=== PATIENT | female | born 1965 | race African-American/Black ===

== ENCOUNTER 2021-08-23 02:19 | Emergency (ER) | payer SELFPAY ==
--- NOTE | ~2021-08-23 | XR_ITS ---
EXAMINATION: XR ankle LT min 3V DATE: 08/23/2021 03:10 INDICATION: Left ankle pain. TECHNIQUE: 3 views of left ankle were obtained. COMPARISON: None. FINDINGS: Bone alignment is normal. No fracture. Joint spaces are well maintained. There are enthesop hytes at posterior and plantar aspects of calcaneal tuberosity. IMPRESSION: 1. No fracture. Reviewed, dictated and finalized at location A. IMPRESSION: 1. No fracture.
[2021-08-23 02:21] VITALS: BP 152/63; PULSE 69; RESP 16; TEMP 37; O2SAT 100
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
== END 2021-08-23 03:57 | disposition home or self-care (01) ==
PROVIDERS: Emergency Provider Emergency Medicine
DX: M72.2 Plantar fascial fibromatosis (principal)
CPT/HCPCS: 73610; 99283

== ENCOUNTER 2021-10-08 02:04 | Emergency (ER) | payer SELFPAY ==
--- NOTE | ~2021-10-08 | CT_ITS ---
EXAMINATION: CT brain wo con DATE: 10/08/2021 02:35 INDICATION: Syncope post fall TECHNIQUE: Computed tomography (CT) of the head was performed without intravenous contrast. Sagittal and coronal reconstructions were performed. The mA was adjusted according to patient size. Iterative reconstruction technique was employed. The dose-length product was 605.33 mGy-cm. COMPARISON: None FINDINGS: No fracture. No acute intracranial hemorrhage, acute infarction or abnormal extra axial fluid collect ion. Ventricles are normal and symmetric. No mass/mass effect. The orbits, paranasal sinuses and mast oid air cells are normal. IMPRESSION: 1. No fracture or acute intracranial process. Reviewed, dictated and finalized at location A.
--- NOTE | ~2021-10-08 | XR_ITS ---
EXAMINATION: XR chest 2V DATE: 10/08/2021 02:38 INDICATION: Syncope TECHNIQUE: PA and lateral views of the chest were obtained. COMPARISON: None FINDINGS: The lungs are clear with no focal airspace opacities, pulmonary edema, pleural effusion or pneumothor ax. The cardiomediastinal silhouette is normal. Visualized bones and soft tissues are unremarkable. IMPRESSION: 1. Normal chest radiograph. Reviewed, dictated and finalized at location A. IMPRESSION: 1. Normal chest radiograph.
--- NOTE | ~2021-10-08 | XR_ITS ---
EXAMINATION: XR elbow RT min 3V DATE: 10/08/2021 03:56 INDICATION: Right elbow pain post fall TECHNIQUE: Anteroposterior, two oblique and lateral views of the right elbow were obtained. COMPARISON: None. FINDINGS: Alignment is normal. No fracture or joint effusion. Mild osteoarthritis at the right elbow. Soft tiss ues are unremarkable. IMPRESSION: 1. Mild osteoarthritis at the right elbow. No acute osseous abnormality. Reviewed, dictated and finalized at location A.
[2021-10-08 02:04] VITALS: BP 163/83; PULSE 62; RESP 16; TEMP 36.6; O2SAT 100
--- NOTE | 2021-10-08 02:09 | ECG_ITS ---
Measurements Intervals [place] Rate: 60 P: 51 NE: 208 QRS: 3 QRSD: 108 T: 7 QT: 425 QTc: 425 Interpretive Statements SINUS RHYTHM WITH SINUS ARRHYTHMIA BORDERLINE AV CONDUCTION DELAY VOLTAGE CRITERIA FOR LVH BORDERLINE ECG Electronically Signed On 10-08-2021 7:04:14 CDT by Tacho Sim D.O.
[2021-10-08 02:31] LABS: Basophils Absolute Auto 0.1 K/mm3 (0.0-0.1); Basophils Percent Auto 0.9 % (0.2-1.2); Eosinophils Absolute Auto 0.2 K/mm3 (0-0.3); Eosinophils Percent Auto 2.5 % (0-4.4); Hematocrit 39.1 % (37.0-47.0); Hemoglobin 12.2 g/dL (12.0-15.0); Immature Granulocyte Absolute 0.03 K/mm3 (0.00-0.031); Immature Granulocyte Percent A 0.4 % (0-0.5); Lymphocytes Absolute Auto 2.89 K/mm3 (0.9-3.2); Lymphocytes Percent Auto 38.5 % (18.3-44.2); Mean Corpuscular HGB Conc 31.2 g/dl (32-36); Mean Corpuscular Hemoglobin 28.5 pg (26-34); Mean Corpuscular Volume 91.4 fl (80-100); Mean Platelet Volume 10.5 fl (7.4-10.4); Monocytes Absolute Auto 0.7 K/mm3 (0.1-0.6); Monocytes Percent Auto 8.9 % (2.6-8.5); Neutrophils Absolute Auto 3.7 K/mm3 (1.3-6.7); Neutrophils Percent Auto 48.8 % (45.5-73.1); Platelet Count Result 335 k/mm3 (150-375); Red Blood Count 4.28 M/mm3 (4.2-5.4); Red Cell Distribution Width 13.9 % (11.5-14.5); White Blood Count 7.5 K/mm3 (4.5-10.0)
[2021-10-08 02:45] LABS: Alanine Aminotransferase 14 U/L (6-35); Albumin Level 4.4 g/dL (3.5-5.1); Alkaline Phosphatase 108 U/L (38-126); Anion Gap 8 mmol/L (8-16); Aspartate Amino Transferase 25 U/L (14-36); Bilirubin,Total 0.3 mg/dL (0.2-1.3); Blood Urea Nitrogen 13 mg/dL (7-17); Calcium 8.8 mg/dL (8.4-10.2); Carbon Dioxide 23 mmol/L (22-30); Chloride 107 mmol/L (98-107); Estimated CRCL calculation 72 ml/min; Estimated Glomerular Filt Rate > 60; Glucose 109 mg/dL (65-110); Potassium 4.2 mmol/L (3.4-5.0); Sodium 138 mmol/L (137-145)
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
[2021-10-08 06:00] VITALS: BP 115/75; PULSE 89; RESP 18; O2SAT 98
== END 2021-10-08 06:01 | disposition home or self-care (01) ==
PROVIDERS: Emergency Provider Emergency Medicine
DX: R55 Syncope and collapse (principal); S50.01XA Contusion of right elbow, initial encounter; R94.31 Abnormal electrocardiogram [ECG] [EKG]; M19.021 Primary osteoarthritis, right elbow; W24.0XXA Contact with lifting devices, not elsewhere classified, initial encounter
CPT/HCPCS: 36415; 70450; 71046; 73080; 80053; 85025; 93005; 99284

== ENCOUNTER 2025-02-09 02:52 | Emergency (ER) | payer OTHER, SELFPAY ==
--- OUTSIDE RECORDS SUMMARY | 2020-03-26 12:54 | XMS_ITS | Continuity of Care Document ---
Author Organization [facility] Address [address] [place] [address] Phone Care Team Providers Care Director Career Name Role Phone Galo Vuong MD Unavailable Unavailable Procedures Procedure Date OFFICE CONSULT, 15 MIN, 3 KE Y COMPS: PROB FOCUS HX; PROB FOCUS EXAM; STRTFWD OFFICE CONSULT, 15 MIN, 3 KE Y COMPS: PROB FOCUS HX; PROB FOCUS EXAM; STRTFWD Results Test Name Date and Time Measure Units Reference Range Abnormal Flag Status Comments Panel Description: SARS-CoV- 2 RNA (COVID-19), Qualitative NAAT Final SARS CoV 2 RNA 2019 11:16:0 8 NOT DETECTED NOT DETECTED Final A Not Detected (negative) test result for this testmeans that SARS- CoV-2 RNA was not present in the specimenabove the limit of detection. A negative result does notrule out the possibility of COVID-19 and should not beused as the sole basis for treatment or patient management decisions. If COVID-19 is still suspected, based on exposure history together with other clinical findings,re-testing should be considered in [facility]. Laboratory test results shouldalways be considered in the context of clinical observations and epidemiological data in making a finaldiagnosis and patient management decisions. Please review the Fact Sheets and FDA authorizedlabeling available for health care providers andpatients using the following websites:https://www .[facility].co m/home/Covid-19/HCP/ [facility]/fact-sheet. htmlhttps://www.[facility].com/deep e/Covid-19/Patients/ [facility]/fact-sheet. html This test has been authorized by the FDA under an Emergency Use Authorization (EUA) for use by robert mccormick. Due to the current public health emergency, [facility] is receiving a high volume of samples froma wide variety of swabs and media for COVID-19 testing.In order to serve patients during this public healthcrisis, samples from appropriate clinical sources are being tested. Negative test results derived fromspecimens received in non-commercially manufacturedviral collection and transport media, or in media andsample collection kits not yet authorized by FDA forCOVID-19 testing should be cautiously evaluated and thepatient potentially subjected to extra precautions suchas additional clinical monitoring, including collectionof an additional specimen. Methodology: Nucleic Acid Amplification Test (NAAT)includes RT-PCR or TMA Additional information about COVID-19 can be foundat the [facility] website:www.[employer]/Covid19 . Advance Directives Directive Yes / No Effective Date File Name No Information Encounters Encounter Description Practice Location Reason(s) For Visit Diagnoses Date Provider Providers [facility] on [facility] [address], [place], [place], [address], tel:[phone] [facility] No Information 0 Vuong Galo. [address], [place], [place], [address], . tel:[phone] OFFICE CONSULT, 15 MIN, 3 ACEVEDO COMPS: PROB FOCUS HX; PROB FOCUS EXAM; [facility] , [address], [place], [place], [address], tel:[phone] [facility] [place] ECONOMIC PROBLEM 200 6 No Information OFFICE CONSULT, 15 MIN, 3 ACEVEDO COMPS: PROB FOCUS HX; PROB FOCUS EXAM; [facility] , [address], [place], [place], [address], tel:[phone] Carla Oneill [facility] ECONOMIC PROBLEM 200 6 No Information Family History Family Member Type Diagnosis Age At Onset No Information Payers Payer name Insurance type Covered alliance party ID Authoriza tion(s) No Information Social History Type Description Quantity Date Captured Comments Sex Female Smoking Status No Information Chief Complaint And Reason For Visit No Information Reason For Referral Reason For Referral No Information History Of Present Illness Encounter Date Complaint History Of Prese nt Illness No Information Functional Status Date Functional Assessmen t No Information Instructions Date Instruction Additional Infor mation No Information Assessments Type Assessment Date No Information Patient Care Teams Name Effective Dates (start - stop) Status Members No Information
--- OUTSIDE RECORDS SUMMARY | 2025-02-09 02:55 | XMS_ITS | Encounter Summary ---
Author Organization [facility] Healthcare Address [address] [place] [address] Care Team Providers Care Roofer Gypsum Name Role Phone Isela Elena MD Primary Care Provider Encounter Details Date Type Department Care Team (Late st Contact Info) Description 02/06/2025 Results Follow-Up [facility] at [address] [address] [address] [place] [address] Throat culture Throat Social History Tobacco Use Types Packs/Day Years Used Date Smoking Tobacco: Former Cigarettes 2 5 7 1991 Smokeless Tobacco: Never Alcohol Use Standard Drinks/Week Comments Not Currently 0 (1 standard drink = 0.6 oz pur e alcohol) Humiliation, Afraid, Rape, and Kick questionnair e Answer Date Recorded Within the last year, have y ou been afraid of your partner or ex-partner? No 11/18/2021 Within the last year, have y ou been humiliated or emotionally abused in other ways by your partner or ex-partner? No Within the last year, have y ou been kicked, hit, slapped, or otherwise physically hurt by your partner or ex-partner? No 11/18/2021 Within the last year, have y ou been raped or forced to have any kind of sexual activity by your partner or ex-partner? No 11/18/2021 Social Connection and Isolation Panel Answer Date Recorded In a typical week, how many times do you talk on the phone with family, friends, or neighbors? Three times a week 11/18/2021 How often do you get togethe r with friends or relatives? Three times a week 11/18/2021 How often do you attend chur ch or church services? More than 4 times per year 11/18/2021 Active Member of Clubs or Organizations Not on f ile 11/18/2021 Attends Club or Organization Meetings Not on leatha e 11/18/2021 Marital Status Not on file 11/18/2021 AUDIT-C Answer Date Recorded Q1: How often do you have a drink containing alcohol? Never 03/02/2022 Q2: How many drinks containi ng alcohol do you have on a typical day when you are drinking? Patient does not drink Q3: How often do you have si x or more drinks on one occasion? Never 03/02/2022 Overall Financial Resource Strain (CARDIA) Answe r Date Recorded How hard is it for you to pa y for the very basics like food, housing, medical care, and heating? Not hard at all 11/18/2021 PHQ-2 Answer Date Recorded PHQ-2 Total Score (If total score is 3 or more points, staff should administer the PHQ-9) 0 06/08/2023 [facility] - Occupational Stress Questionnaire Answer Date Recorded Do you feel stress - tense, restless, nervous, or anxious, or unable to sleep at night because your mind is troubled all the time - these days? Only a little 11/18/2021 Exercise Vital Sign Answer Date Recorde d On average, how many days pe r week do you engage in moderate to strenuous exercise (like a brisk walk)? 3 days 11/18/2021 On average, how many minutes do you engage in exercise at this level? 60 min 11/18/2021 Hunger Vital Sign Answer Date Recorded Within the past 12 months, y ou worried that your food would run out before you got the money to buy more. Never true 11/19/19 22 Within the past 12 months, t he food you bought just didn't last and you didn't have money to get more. Never true 11/18/2021 PRAPARE - Transportation Answer Date Re corded In the past 12 months, has l ack of transportation kept you from medical appointments or from getting medications? No 05/2021 In the past 12 months, has l ack of transportation kept you from meetings, work, or from getting things needed for daily living? 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
--- OUTSIDE RECORDS SUMMARY | 2025-02-09 02:55 | XMS_ITS | Clinical Summary ---
Author Organization [facility] Address [address] [place] [address] Care Team Providers Care Personal Injury Litigation Paralegal Name Role Phone Unavailable Primary Care Provider Unavailabl e Source Comments [facility],non-owned Affiliates and Associated Physician Practices is amultiple site organization consisting of ambulatory clinics and hospital sitesin [place], [place], [place] and [place]. This disclosure is being madepursuant to the Care Everywhere program and may not contain all information available regarding this patient. Last updated 18.[facility] [employer] Allergies Active Allergy Reactions Criticality Noted Date Comments Pseudoephedrine Base 02/10/2016 anxiety Medications * Be aware that medications may not be up to date on this document. Alwaysverify current medications with the patient. No known medications Active Problems No known active problems Social History Tobacco Use Types Packs/Day Years Used Date Smoking Tobacco: Never Smokeless Tobacco: Never Alcohol Use Standard Drinks/Week Comments No 0 (1 standard drink = 0.6 oz pur e alcohol) Comments No Sex and Gender Information Value Date Recorded Sex Assigned at Not on file Legal Sex Female 3:11 PM CDT Gender Identity Not on file Sexual Orientation Not on file Last Filed Vital Signs Vital Sign Reading Time Taken Comments Blood Pressure 130/82 10/13/2018 2:17 PM CDT Pulse 83 10/13/2018 2:17 PM CDT Temperature 37.3 C (99.1 F) 10/13/2018 2:17 PM CDT Respiratory Rate 18 10/13/2018 2:17 PM CDT Oxygen Saturation 99% 11/14/2017 9:36 AM CDT Inhaled Oxygen Concentration - - Weight 91.2 kg (201 lb) 10/13/2018 2:17 PM CDT Height 160 cm (5' 3) 10/13/2018 2:17 PM CDT Body Mass Index 35.61 10/13/2018 2:17 PM CDT Plan of Treatment Health Maintenance Due Date Last Done Comments COLOGUARD (AGES 45-75) - COL ON CA SCREENING 1966 COLON MONITORING 1966 COLONOSCOPY - COLON CA SCREENING 1966 CT COLONOGRAPHY - COLON CA SCREENING 1966 Colorectal Cancer Screening 1966 FIT - COLON CA SCREENING 1966 FLEX SIG - COLON CA SCREENING 1966 LIPID TESTING 1966 MAMMOGRAM 1966 HIV SCREENING 1981 HEPATITIS C SCREENING 06/09/1984 DTAP/TDAP/TD VACCINES (1 - Tdap) 1985 HEPATITIS B VACCINE (1 of 3 - 19+ 3-dose series) 1985 PNEUMOCOCCAL VACCINE 50+ (1 of 1 - PCV) 2016 ZOSTER VACCINE (1 of 2) 2016 SCREENING FOR DIABETES 08/04/2019 08/03/2016 DEPRESSION SCREENING 05/21/2024 COVID-19 VACCINE (1 - 2023-2 5 season) 2025 INFLUENZA VACCINE (#1) 2025 HIB VACCINE Aged Out No longer eligi ble based on patient's age to complete this topic HPV VACCINE Aged Out No longer eligi ble based on patient's age to complete this topic MENINGOCOCCAL (Group B) VACC INE SHARED DECISION-MAKING Aged Out No longer eligibl e based on patient's age to complete this topic MENINGOCOCCAL GROUPS A/C/Y/W VACCINE Aged Out No longer eligible b ased on patient's age to complete this topic Procedures Procedure Name Priority Date/Time Associated Diagnosis Comments BASIC METABOLIC PANEL (CALCIUM TOTAL) STAT 08/03/2016 11:23 AM CDT from Last 3 Months or Most Recently Relevant to Health Maintenance Results * BASIC METABOLIC PANEL (CALCIUM TOTAL) (08/03/2016 11:23 AM CDT) BUN 10 7 - 26 mg/dL [facility] Creatinine 0.7 0.6 - 1.2 mg/dL [facility] Sodium 137 136 - 145 mmol/L [facility] Potassium 4.3 3.5 - 4.5 mmol/L [facility] Chloride 107 98 - 107 mmol/L [facility] CO2 23 22 - 29 mmol/L [facility] Glucose 114 70 - 115 mg/dL [facility] Calcium 8.5 8.4 - 10.2 mg/dL [facility] Anion Gap 11 8 - 18 [facility] BUN/Creatinine Ratio 14 7 - 23 [facility] Osmolality Calculated 284 270 - 300 mOsm/kg [facility] eGFR >60 >60 mL/min/1.[address] [facility] Blood specimen (specimen) BLOOD SPECIMEN / Unknown 08/03/2016 11:23 AM CDT 08/03/2016 11:31 AM CDT Harjeet Bashir MD LAB - CHEMISTRY ORDERABLES F inal Result [facility] [address] [phone] from Last 3 Months or Most Recently Relevant to Health Maintenance Insurance [facility]
--- OUTSIDE RECORDS SUMMARY | 2025-02-09 02:55 | XMS_ITS | Clinical Summary ---
Author Organization [facility] Address [address] [place] [address] Care Team Providers Care Traffic Counter Name Role Phone Isela Elena MD Primary Care Provider Allergies Active Allergy Reactions Criticality Noted Date Comments Pseudoephedrine Anxiety Low 02/10/2016 anxiety Pseudoephedrine Hcl Anxiety Low 06/16/2019 Medications triamcinolone (KENALOG) 0.1 % ointmentIndicati ons:Lichen simplex chronicus Apply topically 2 (two) times a day 30 g 1 2 Active Additional Information Patient not taking.Reported on 02/05/2025 acetaminophen (TYLENOL) 500 mg tabletIndication s:Acute pain of right shoulder Take 1 tablet (500 mg total) by mouth every 4 (four) hours as needed for pain 60 tablet 1 2 Active Additional Information Patient not taking.Reported on 02/05/2025 lidocaine viscous (XYLOCAINE) 2 % solutionIndicati ons:Pharyngitis, unspecified etiology Apply 10 mL to the mouth or throat every 6 (six) hours as needed (sore throat) May mix with 30 ml of Mylanta 100 mL 5 Active Active Problems Problem Noted Date Diagnosed Date Fatigue 06/08/2023 Assessment & Plan (06/08/2023 4:04 PM CARDIOPULMONARY TECHNOLOGIST): Chronic. Suspect multifactorial. May be related to poor sleep hygiene. May need to consider evaluation for MICHAELLE in the future. Patient was provided with some sleep hygiene tips Postmenopausal syndrome 06/08/2023 Assessment & Plan (06/08/2023 4:04 PM CARDIOPULMONARY TECHNOLOGIST): Patient notes some intermittent issues with hot flashes and fatigue. She will follow up with Gynecology to address this Class 2 severe obesity due t o excess calories with serious comorbidity and body mass index (BMI) of 39.0 to 39.9 in adult 06/08/2023 Assessment & Plan (06/08/2023 4:04 PM CARDIOPULMONARY TECHNOLOGIST): Chronic. Suboptimally controlled. Counseled on healthy diet, exercise and weight loss recommendation Abnormal mammogram of right breast 06/08/2023 Assessment & Plan (06/08/2023 4:05 PM CARDIOPULMONARY TECHNOLOGIST): Patient had an abnormal mammogram of the right breast in 2021. Patient was noncompliant with following through with the recommended diagnostic mammogram and ultrasound. She initially canceled the test and then rescheduled for a later date. She unfortunately no showed this. It appears that patient has never had the follow up imaging done. At this point we will obtain a diagnostic mammogram of the bilateral breast and targeted ultrasound on the right breast to follow up on prior abnormality. Stressed importance of making sure this gets done. Right shoulder pain 01/13/2022 Assessment & Plan (01/16/2022 10:40 AM CDT): Right shoulder pain is most likely MSK in origin. Exam reassuring; pain is mild & range of motion is full. MRI obtained earlier this week at outside facility; results pending. 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 - Pain: ibuprofen 600 mg Q6H, Tylenol 500 mg Q4H or 1000 Q8H, lidocaine patch 5% daily, Voltaren gel QID PRN - Daily R shoulder exercises to maintain shoulder RoM (wall crawls) - [facility] PT referral (has health insurance through [employer]) - F/u MRI with company doctor - Provided work note (avoid lifting >10 lb with R arm & repetitive R arm movements pending MRI results & PT assessment) - RTC if sx worsen Prediabetes 12/06/2021 Overview (12/06/2021): A1C at 6.4 on labs drawn on 11/18, placing her in the pre-diabetes range. Does not have any microvascular complications of diabetes such as nephropathy, neuropathy, or retinopathy at this time. Denies symptoms of hyperglycemia. She wants to try lifestyle changes- improving her diet and exercise- prior to starting any meds at this time. - Referred to binding bench worker - Counseled on importance of lifestyle changes to prevent the development of diabetes - will re-check A1C at next visit Assessment & Plan (06/08/2023 4:04 PM CARDIOPULMONARY TECHNOLOGIST): Chronic. Patient was educated again on healthy diet, exercise and weight loss recommendation. We will need to monitor this closely. If she does not improve her diet and lifestyle continue work on weight loss she will be at risk for progressing to diabetes Assessment & Plan (12/06/2021 9:35 PM CDT): A1C at 6.4 on labs drawn on 11/18, placing her in the pre-diabetes range. Does not have any microvascular complications of diabetes such as nephropathy, neuropathy, or retinopathy at this time. Denies symptoms of hyperglycemia. She wants to try lifestyle changes- improving her diet and exercise- prior to starting any meds at this time. - Referred to binding bench worker - Counseled on importance of lifestyle changes to prevent the development of diabetes - will re-check A1C at next visit Well woman exam 11/18/2021 Overview (11/18/2021): -Reviewed general breast health. Screening mammogram ordered. Breast center phone number provided. -Pap Negative/HPV Negative 2019-Due 2024. -NG/CT/Trich Screening declined. -HIV/HepC/RPR Screening-declined. -CBC/CMP/Lipid Panel/HgbA1C/TSH-ordered. -Encouraged to establish care with primary medicine clinic in basket message sent to scheduling. -Ambulatory referral placed for Gastroenterology-Screening colonoscopy. -Follow up in 1 year or sooner if needed. Lichen simplex chronicus 03/08/2020 Overview (11/18/2021): Clinic 03/08 -Patient history of itch-scratch cycle and physical exam most consistent with LSC, no evidence of vulvovaginal candidiasis -Counseled patient to avoid use of Vaseline and cocoa butter -Triamcinolone 0.1% ointment sent to pharmacy - instructed patient to apply nightly for 1 week, every other day for 1 week, twice weekly for 1 week, and weekly for 1 week and return to clinic at the end of course; if symptoms return when spacing the steroid ointment, can continue to apply nightly until follow-up appointment -Atarax nightly sent to pharmacy with goal to break itch-scratch cycle, particularly at night -RTC in 4 weeks for repeat exam 11/18/21 Rx Triamcinolone 0.1% apply to vulva as per instructions above. Follow up with resident physician in 4 weeks for possible vulvar biopsy. Assessment & Plan (06/08/2023 4:03 PM CARDIOPULMONARY TECHNOLOGIST): Patient past due for follow up with Gynecology. Has p.r.n. triamcinolone. Encouraged importance of seeing Gynecology for more long-term well-woman care Resolved Problems Problem Noted Date Diagnosed Date Resolved Date High blood pressure 12/06/2021 12/07/19 22 Elevated blood pressure reading 12/06/2021 06/08/2023 Overview (12/06/2021): Pt's BP was elevated to 142/80 at today's visit, and her BP during her OBGYN appointment earlier in the beginning of November was 140/64. Her previous BP readings at last visits in 2018 were in the normal range. Does not technically meet the criteria for hypertension at this time since we only have two office BP readings. - Recheck BP at next visit, can consider ambulatory BP monitoring if still elevated at next visit - She wants to try lifestyle changes before starting any BP meds Assessment & Plan (01/16/2022 10:30 AM CDT): BP 119/80 today not on antihypertensive therapy. Assessment & Plan (12/06/2021 9:40 PM CDT): Pt's BP was elevated to 142/80 at today's visit, and her BP during her OBGYN appointment earlier in the beginning of November was 140/64. Her previous BP readings at last visits in 2018 were in the normal range. Does not technically meet the criteria for hypertension at this time since we only have two office BP readings. - Recheck BP at next visit, can consider ambulatory BP monitoring if still elevated at next visit - She wants to try lifestyle changes before starting any BP meds Pain and swelling of knee, right 12/06/2021 03/02/2022 Overview (12/06/2021): Reports occasional right knee pain and swelling since starting job at [employer] when she is lifting heavy boxes. Knee exam was normal at today's visit. - Recommended trial of elastic knee brace at work Assessment & Plan (12/06/2021 9:43 PM CDT): Reports occasional right knee pain and swelling since starting job at [employer] when she is lifting heavy boxes. Knee exam was normal at today's visit. - Recommended trial of elastic knee brace at work Diabetes mellitus, type II 12/05/2021 0 12/06/2021 Healthcare maintenance 03/08/202003/02 Overview (03/24/2020): Clinic 03/08 -Negative cytology 06/2017, cotest obtained today - negative cotesting 03/08/2020, repeat in 5 years -Mammogram ordered -Colonoscopy ordered -DEXA not yet indicated -PPD obtained for work per patient request -Recommend establishment of care with PCP Assessment & Plan (12/06/2021 9:31 PM CDT): Health Maintenance - Contraception: tubal ligation - A1c (for pts c BP >135/80): Hgb A1C Date Value Ref Range Status 11/18/2021 6.4 (H) 4.0 - 5.6 % Final - Lipids (women >45 or high risk): Lab Results Component Value Date LDLCALC 103 11/18/2021 - DEXA (women >65 or high risk): Not indicated at this time Cancer - Colonoscopy (age 50-75): Recommended F/U: Order placed - Mammogram (women age 50-74): Scheduled - Pap (women 21-65): UTD - Lung / annual CT (55-80 c >30 pk-yr hx, and smoking in past 15yrs): Not indicated at this time Infectious Disease - HIV (age 15-65): Denies screening at this time - HBV (if at high risk): Not indicated at this time - HCV ( 7105-3196): not indicated - Gonorrhea/Chlamydia (women <24 or increased risk): Not indicated at this time - Syphilis (if increased risk): Not indicated at this time Immunizations - Influenza (annually): Not interested at this time - Td/Tdap (q10 years): Not indicated at this time - PPSV23 / Pneumovax (age >50, smokers, immunocomp, DM, CKD, heart dz, lung dz, liver dz, EtOH, asplenia): Not interested at this time - PCV13 (age >65, immunocomp, CKD, asplenia): Not indicated at this time - Shingles (age >50): not interested at this time - HPV (women <26): not indicated - HAV (MSM or chronic liver disease): Not indicated at this time - HBV (DM, HIV, MSM, liver dz, CKD, healthcare workers): Not indicated at this time - Meningococcus (asplenia, college students): Not indicated at this time - HiB (asplenia, HSCT): Not indicated at this time - Covid: 2 shots completed Encounters Date Type Department Care Team Description 02/07/2025 Patient Self-Triage [facility] HealthCare/ Physicians [address] [place] [id number] Mychart, Generic Provider 02/06/2025 Results Follow-Up [facility] at [address] [id number] Erika Hamilton PA Throat culture Throat 02/05/2025 5:15 PM CDT Office Visit [facility] [address] [address] Zehra Vanegas NP Pharyngitis, unspecified etiology (Primary Dx) 02/05/2025 5:10 PM CDT - 02/05/2025 11:59 PM CDT Hospital Encounter [facility] [address] [place] [address] Pharyngitis, unspecified etiology Discharge Disposition: Discharge to home or self care from Last 3 Months Immunizations Immunization Administration Dates Next Due Influenza, Quadrivalent, Spl it, Preservative Free, Intramuscular 06/28/2017 PPD TEST 08/08/2016 Td, adsorbed 12/07/1998 Tdap 08/08/2016 Surgical History Surgery Date Site/Laterality Comments TUBAL LIGATION Medical History Medical History Date Comments Prediabetes Family History Medical History Relation Name Comments overdose Father Alcohol abuse Mother COPD Mother tobacco use Mother Relation Name Status Comments Father Mother Social History Tobacco Use Types Packs/Day Years Used Date Smoking Tobacco: Former Cigarettes 2 5 1 7 1991 Smokeless Tobacco: Never Tobacco Cessation:Counseling Given: Not Answered Alcohol Use Standard Drinks/Week Comments Not Currently [...] week 11/18/2021 How often do you attend [facility]? 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 Not on file Not on file Obstetrics History Para Term AB IAB SAB Ectopic Multiple Livin g Live Births 3 1 1 0 2 1 Date Outcome GA Total Labor Labor/2nd/3rd Weight Sex Type Anes PTL Lou A1 A5 Name Clin Term AB AB Last Filed Vital Signs Vital Sign Reading Time Taken Comments Blood Pressure 142/84 02/05/2025 4:37 PM CDT Pulse 70 02/05/2025 4:37 PM CDT Temperature 36.7 C (98 F) 02/05/2025 4:37 PM CDT Respiratory Rate 20 02/05/2025 4:37 PM CDT Oxygen Saturation 99% 02/05/2025 4:37 PM CDT Inhaled Oxygen Concentration - - Weight 97.1 kg (214 lb) 02/05/2025 4:37 PM CDT Height 154.9 cm (5' 1) 06/08/2023 10:45 AM CARDIOPULMONARY TECHNOLOGIST Body Mass Index 40.43 06/08/2023 10:45 AM CARDIOPULMONARY TECHNOLOGIST Plan of Treatment Scheduled Procedures Name Priority Associated Diagnoses Date/Ti me COLONOSCOPY Health care maintenance Health Maintenance Due Date Last Done Comments Colon Cancer Screening-Colonoscopy 1965 Hepatitis B Screening 1984 Zoster Vaccine (1 of 2) 2016 Regular Well Visit/Exam 18-64 11/18/2022 11/18/2021 Breast Cancer Screening-Mammogram 01/25/2023 01/25/2022 Cervical Cancer Screening 03/08/2023 03/08/2020 Depression Screening 06/08/2024 06/08/2023, 03/02/2022 Influenza Vaccine (#1) 2025 06/28/2017 DTaP/Tdap/Td Vaccine (2 - Td or Tdap) 08/08/2026 08/08/2016, 12/07/1998 Hepatitis C Screening Completed 06/08/2023 Colon Cancer Screening-DNA Stool Discontinued 07/10/2023 Colon Cancer Screening-FIT Discontinued 07/10/2023 Pneumococcal vaccine <65 Aged Out No longer eligible based on patient's age to complete this topic Procedures Procedure Name Priority Date/Time Associated Diagnosis Comments THROAT CULTURE Routine 02/05/2025 5:10 PM CDT Pharyngitis, unspecified etiology POC INFLUENZA A/B, COVID-19 ANTIGEN Routine 02/05/2025 4:59 PM CDT Pharyngitis, unspecified etiology POCT RAPID STREP Routine 02/05/2025 4:59 PM CDT Pharyngitis, unspecified etiology STOOL DNA COLOGUARD Routine 07/10/2023 6:02 AM CARDIOPULMONARY TECHNOLOGIST Screen for colon cancer HEPATITIS C ANTIBODY Routine 06/08/2023 11:44 AM CARDIOPULMONARY TECHNOLOGIST Encounter for hepatitis C screening test for low risk patient SCREENING MAMMOGRAM BILATERAL W SAGAR Schedule Routine, Read Routine (OP Routine) 01/25/2022 1:53 PM CDT Well woman exam PAP AND HIGH RISK HPV, REFLEX TO GENOTYPING Routine 03/08/2020 8:36 AM CDT from Last 3 Months or Most Recently Relevant to Health Maintenance Results * Throat culture Throat (02/05/2025 5:10 PM CDT) Report Final Report: No growth of pathogens. Comment:Testing performed by : [facility], [address] [place]., [address] Throat 02/05/2025 5:10 PM CDT 02/06/2025 12:28 AM CDT Lucia WATKINS CH - 02/06/2025 7:27 PM CDT Testing performed by [facility] ([phone]). Zehra Vanegas NP LAB MICROBIOLOGY - GENERAL ORDERABLES Final Result [facility] [address] Department [place] [address] * POC Influenza A/B, COVID-19 antigen (02/05/2025 4:59 PM CDT) Influenza A Ag, POC Negative Negative [facility] Influenza B Ag, POC Negative Negative [facility] COVID-19 Ag POC Presumptive Negative Presumptive Negative, Invalid [facility] Nasal 02/05/2025 4:59 PM CDT Zehra Vanegas NP POINT OF CARE TEST ORDERAB LES Final Result [facility] [address] [place] [address] * POCT rapid strep A (02/05/2025 4:59 PM CDT) Rapid Strep A, POC Negative Negative Swab 02/05/2025 4:59 PM CDT Zehra Vanegas NP POINT OF CARE TEST ORDERAB LES Final Result * Stool DNA - Cologuard (07/10/2023 6:02 AM CARDIOPULMONARY TECHNOLOGIST) Stool DNA - Cologuard Negative Negative [facility] (CLIA #:[id number]) Comment: NEGATIVE TEST RESULT. A negative Cologuard result indicates a low likelihood that a colorectal cancer (CRC) or advanced adenoma (adenomatous polyps with more advanced pre-malignant features) is present. The chance that a person with a negative Cologuard test has a colorectal cancer is less than 1 in 1500 (negative predictive value >99.9%) or has an advanced adenoma is less than 5.3% (negative predictive value 94.7%). These data are based on a prospective cross-sectional study of 10,000 individuals at average risk for colorectal cancer who were screened with both Cologuard and colonoscopy. (Bruna Park al, N Engl J Med 2014;370(14):8716-0740) The normal value (reference range) for this assay is negative. COLOGUARD RE-SCREENING RECOMMENDATION: Periodic colorectal cancer screening is an important part of preventive healthcare for asymptomatic individuals at average risk for colorectal cancer. Following a negative Cologuard result, the [place] Cancer Society and U.S. Multi-Society Task Force screening guidelines recommend a Cologuard re-screening interval of 3 years. References: [place] [employer] Guideline for Colorectal Cancer Screening: https://www.cancer.org/cancer/flqtg-xmgdau-kvcxzx/nxnelqugn-anojyjfdw-fzuwecw/ac s-rec ommendations.html.; Truong DK, Jim CR, Jaleel AshleyK, Colorectal Cancer Screening: Recommendations for Physicians and Patients from the U.S. Multi-Society Task Force on Colorectal Cancer Screening , Am J Gastroenterology 2017; 112:6524-0475. TEST DESCRIPTION: Composite algorithmic analysis of stool DNA-biomarkers with hemoglobin immunoassay. Quantitative values of individual biomarkers are not reportable and are not associated with individual biomarker result reference ranges. Cologuard is intended for colorectal cancer screening of adults of either sex, 45 years or older, who are at average-risk for colorectal cancer (CRC). Cologuard has been approved for use by the U.S. FDA. The performance of Cologuard was established in a cross sectional study of average-risk adults aged 50-84. Cologuard performance in patients ages 45 to 49 years was estimated by sub-group analysis of near-age groups. Colonoscopies performed for a positive result may find as the most clinically significant lesion: colorectal cancer [4.0%], advanced adenoma (including sessile serrated polyps greater than or equal to 1cm diameter) [20%] or non- advanced adenoma [31%]; or no colorectal neoplasia [45%]. These estimates are derived from a prospective cross-sectional screening study of 10,000 individuals at average risk for colorectal cancer who were screened with both Cologuard and colonoscopy. (Bruna Park al, N Engl J Med 2014;370(14):7905-2971.) Cologuard may produce a false negative or false positive result (no colorectal cancer or precancerous polyp present at colonoscopy follow up). A negative Cologuard test result does not guarantee the absence of CRC or advanced adenoma (pre-cancer). The current Cologuard screening interval is every 3 years. ([place] [employer] Society and U.S. Multi-Society Task Force). Cologuard performance data in a 10,000 patient pivotal study using colonoscopy as the reference method can be accessed at the following location: www.DeciZium.AHAlife.com/results. Additional description of the Cologuard test process, warnings and precautions can be found at www.Life in Hi[employer].com. Stool 07/10/2023 6:02 AM CARDIOPULMONARY TECHNOLOGIST 07/11/2023 12:47 PM CARDIOPULMONARY TECHNOLOGIST Isela Elena MD LAB BODY FLUIDS AND ST OOLS ORDERABLES Final Result Performing Organization Address [facility] Co de Phone Number [facility] (CLIA #:[id number]) [place] [address] * Hepatitis C antibody Blood (06/08/2023 11:44 AM CARDIOPULMONARY TECHNOLOGIST) Hep C Ab Nonreactive Nonreactive [facility] Comment: Interpretive Data Nonreactive: Antibodies to HCV not detected. Does NOT exclude the possibility of recent exposure to HCV. Equivocal: Equivocal for HCV antibodies. Supplemental molecular testing will be automatically performed to determine infection status in accordance with current CDC screening recommendations. Reactive: Positive for HCV antibodies. This may represent current or past HCV infection. Supplemental molecular testing will be automatically performed to determine current infection status in accordance with current CDC screening recommendations. Interpretive data was last revised on 2019. Blood 06/08/2023 11:4 4 AM CARDIOPULMONARY TECHNOLOGIST 06/08/2023 8:16 PM CARDIOPULMONARY TECHNOLOGIST Isela Elena MD LAB MICROBIOLOGY - GEN ERAL ORDERABLES Final Result Performing Organization Address [facility] de Phone Number [facility] [id number] Department [place] [address] * (ABNORMAL) Screening Mammogram Bilateral W Sagar (01/25/2022 1:53 PM CDT) Anatomical Region Laterality Modality Breast Bilateral Mammography Impressions 01/25/2022 1:57 PM CDT BI-RADS ATLAS category (overall): 0 - Incomplete: Needs Additional Imaging Evaluation There is a small focal asymmetry in the subareolar right breast. Further evaluation with right unilateral diagnostic mammogram and possible sonogram is recommended. No suspicious findings are identified in the left breast on mammogram. Annual screening mammogram recommended in 12 months. The patient has been or will be contacted. Narrative 01/25/2022 1:57 PM CDT Screening Mammogram Bilateral W Sagar: 01/25/22 The study was acquired using full field digital technology and interpreted from soft copy. 2D digital mammographic views, as well as 3D digital tomosynthesis were performed in the CC and MLO projections. CLINICAL: Well woman exam. No relevant medical history has been documented for this patient. No known family history of breast cancer. COMPARISON: Baseline Screening Mammography. No prior mammography is available for comparison. BREAST TISSUE: The breasts have scattered areas of fibroglandular density. FINDINGS: There is a small focal asymmetry in the subareolar right breast. There is no other suspicious finding in either breast on mammogram. us Kailey Rodriguez NP IMG MAMMO PROCEDURES F inal Result * Pap and High Risk HPV, reflex to Genotyping (03/08/2020 8:36 AM CDT) 03/08/2020 8:36 AM CDT 03/08/2020 10:54 AM CDT Narrative 03/23/2020 10:41 AM CARDIOPULMONARY TECHNOLOGIST EPIC results best viewed via link to PDF [facility] [place] [phone] CYTOPATHOLOGY REPORT FINAL Patient Name: EPHRAIM MANNING Gender: F : 1965 (Age: 54) Address: [place] [address] Hospital #: [id number] Service: Gynecology Location: [facility] Patient Type: [facility] Ancillary Taken: 03/08/2020 Received: 03/08/2020 Accessioned: 03/09/2020 Reported: 03/23/2020 Physician(s): Catherine Arrington M.D. FINAL INTERPRETATION SOURCE OF SPECIMEN: Liquid based Thin Prep pap with HPV STATEMENT OF ADEQUACY: - Satisfactory for evaluation - Endocervical cells/transformation zone sample present GENERAL CATEGORY: - Negative for squamous intraepithelial lesion or malignancy DESCRIPTION: - Reactive cellular changes Comments HPV Result: NEGATIVE for high risk types of Human Papilloma Virus (HPV) RNA This probe detects the presence of HPV types: 16, 18, 31, 33, 35, 39, 45, 51, 52, 56, 58, 59, 66 and 68. This HPV test was performed at [facility] in [place], [place] utilizing the Gen-Probe Aptima assay. 03/23/2020 09:00 By this signature, I attest that the above diagnosis is based upon my personal examination of the slides(and/or other material indicated in the diagnosis). Ani Gonzales M.D. Report Electronically Reviewed and Signed Out By Ani Gonzales M.D. 03/23/2020 10:41:37 TAMMY Hitchcock, CT(ASCP)[facility] Cervicovaginal Cytology (Pap Test) Disclaimer: The Pap test is a screening test used to detect cervical cancer and its precursors; it is not a diagnostic procedure. False negative and false positive results do occur. Pap test results should be interpreted in the context of pertinent clinical information and biopsy results as indicated. Gross Description A. Liquid based Thin Prep pap with HPV: Cervical/vaginal - Screening ThinPrep Clinical Diagnosis and History Last Menstrual Period: unknown ICD-9 code Z00.00 per requisition. The HPV test was performed by [facility], [address] [place] [address]. Report Images and scanned documents, if included only viewable in PDF version The performance characteristics of some immunohistochemical stains, in-situ hybridization and fluorescence in-situ hybridization tests and immunophenotyping by flow cytometry cited in this report (if any) were determined by the Surgical Pathology Department at [facility] as part of an ongoing quality systems engineer program and in compliance with federally mandated regulations drawn from the Clinical Laboratory Improvement Act of 1988 (CLIA '88). Some of these tests rely on the use of analyte specific reagents and are subject to specific labeling requirements by the US Food and Drug Administration. Such diagnostic tests may only be performed in a facility that is certified by the Department of Health and Human Services as a high complexity laboratory under CLIA '88. The FDA has determined that such clearance or approval is not necessary. This test is used for clinical purposes. It should not be regarded as investigational or for research. Nevertheless, federal rules concerning the medical use of analyte specific reagents require that the following disclaimer be attached to the report: This test was developed and its performance characteristics determined by the Surgical Pathology Department of [facility]. It has not been cleared or approved by the U. S. Food and Drug Administration. Catherine Arrington MD LAB CYTOLOGY ORDERABLE S Final Result from Last 3 Months or Most Recently Relevant to Health Maintenance Insurance [facility] [employer] GENERIC SON SHANNON WEBBER [id number] [employer] GENERIC Care Teams Traffic Counter Relationship Specialty Start Date End Date Isela Elena MD PCP - General Family Practice 02/27/22
[2025-02-09 03:05] VITALS: BP 172/73; PULSE 60; RESP 17; TEMP 36.6; O2SAT 100
[2025-02-09 03:35] VITALS: O2SAT 99
[2025-02-09] MEDS: KETOROLAC 30 MG/ML VIAL (*BKC) 15 MG IM (03:45)
[2025-02-09] MEDS: dexAMETHasone SOD PHOS INJ 10 MG/ML 1 ML VIAL BY MOUTH (03:45)
--- NOTE | 2025-02-09 04:27 | ED_ITS ---
HPI - URI/Sore Throat General Chief Complaint: Upper Respiratory Infection Stated Complaint: sore throat Time Seen by Provider: 02/09/25 02:54 History of Present Illness HPI Narrative: Patient presents here with URI symptoms, ongoing for last 3 days, she had nasal congestion, sore throat, pressure in her ears and sinuses, went to outside hospital yesterday was given a numbing medication to gargle which helps for a little bit. Related Data Allergies Allergy/AdvReac Type Severity Reaction Status Date / Time pseudoephedrine (From AdvReac Anxiety Verified 02/09/25 02:53 Sudafed) Review of Systems Review of Systems: All systems reviewed & are unremarkable except as noted in HPI and below PMFSH Past Medical History Medical History Patient denies significant medical history Surgical History Surgical History Tubal ligation status Social History Social History (Updated 10/27/21 @ 08:17 by Danette Darby) Social History: Smoking status: Never smoker Second hand tobacco smoke exposure: No Alcohol intake: never Substance use: never Substance use type: does not use Living arrangements: with family Occupation/Education: occupation Gender identity (if verbalized by the patient): Female Sexual Orientation (if Verbalized by the Patient): Straight or Heterosexual Exam Narrative: EXAMINATION OF ORGAN SYSTEMS/BODY AREAS: Constitutional: Vital signs per nursing GENERAL:[No acute distress, non-toxic appearing.] HEAD: Normal with no signs of head trauma. EYES: EOMI, conjunctiva normal ENT: No trismus, clear airway without tonsillar swelling or exudates, clear v oice LUNGS: Nonlabored breathing. Clear to auscultation bilaterally HEART: [Regular rate and rhythm] ABD: [Soft], [nontender to palpation] EXT: Normal range of motion SKIN: [No rashes or lesions.] NEURO: [Alert and oriented x 3. No gross focal sensory or strength deficits.] PSYCH: Normal affect Course Vital Signs Vital signs: Vital Signs Temperature 97.9 F 02/09/25 03:05 Pulse Rate 60 02/09/25 03:05 Respiratory Rate 17 02/09/25 03:05 Blood Pressure 172/73 H 02/09/25 03:05 Pulse Oximetry 100 02/09/25 03:05 Oxygen Delivery Room Air 02/09/25 03:05 Temperature 97.9 F 02/09/25 03:05 Pulse Rate 60 02/09/25 03:05 Respiratory Rate 17 02/09/25 03:05 Blood Pressure 172/73 H 02/09/25 03:05 Pulse Oximetry 99 02/09/25 03:35 Oxygen Delivery Room Air 02/09/25 03:35 MDM - URI/Sore Throat MDM Narrative Medical decision making narrative: ED COURSE AND MEDICAL DECISION MAKING: This 59 year old patient presents with symptoms most suggestive of viral upper respiratory tract infection. Lungs are clear bilaterally without any respiratory distress or accessory muscle use. She has no trismus, her voice is clear, no uvular deviation or tonsillar swelling, I have low concern for airway compromise. Patient is treated symptomatically with Toradol, dexamethasone. She had already been swabbed for flu, COVID, RSV, and strep. She is requesting discharge at this time, she will be discharged home in stable condition with expectant management. Return precautions were provided. Very well-appearing here and I will give her prescription for Flonase also for her symptoms. Discharge Plan Discharge Clinical Impression: URI (upper respiratory infection) Patient Disposition: Home Condition: Stable Instructions: Upper Respiratory Infection (ED), Hypertension (ED) Additional Instructions: Please try the medications as prescribed. Your blood pressure was also elevated today, this may be due to the pain and illness you have right now but please follow-up with your doctor in case you ne ed to be started on blood pressure medications to prevent future issues such as heart disease, stroke, kidney disease. You can always return for any further issues, especially if your pain gets worse , if you have more swelling and cannot swallow or speak or breathe. Patient Language: Norwegian Prescriptions: New acetaminophen [Tylenol Extra Strength] 500 mg tablet 1,000 mg PO Q6H PRN (Reason: pain) Qty: 50 0RF ibuprofen 600 mg tablet 600 mg PO TID PRN (Reason: fever or pain) Qty: 20 0RF fluticasone propionate [Allergy Relief (fluticasone)] 50 mcg/actuation spray,suspension 1 spray intranasal DAILY Qty: 16 0RF Rx Instructions: administer into each nostril No Action fluoxetine 10 mg tablet 10 mg PO DAILY Qty: 30 0RF Follow-up/Referrals: Rostovtseva,Jennifer Y., MD [Physician, Family Practice] - 2 Days
== END 2025-02-09 04:09 | disposition home or self-care (01) ==
PROVIDERS: Emergency Provider Emergency Medicine
DX: J06.9 Acute upper respiratory infection, unspecified (principal)
CPT/HCPCS: 96372; 99283; J1100; J1885